=== PATIENT | male | born 1945 ===

== ENCOUNTER 2019-08-07 09:00 | Inpatient (IN) | payer OTHER ==
[~2019-08-07] VITALS: Ht 170.2 cm; Wt 73.0 kg
[2019-08-07] MEDS ORDERED: SIMVASTATIN20 MG PO (09:08)
[2019-08-07] MEDS ORDERED: COZAAR100 MG PO (09:08)
[2019-08-07] MEDS ORDERED: ADALAT CC90 MG PO (09:09)
[2019-08-07] MEDS ORDERED: HYDROCHLOROTHIA25 MG PO (09:09)
[2019-08-07] MEDS ORDERED: LEVO-T50 MCG PO (09:09)
[2019-08-13] MEDS ORDERED: HYOSCYAMINE0.125 M1 SL (12:25)
[2019-08-13] MEDS ORDERED: OXYC1TAB9 PO (12:25)
== END 2019-08-13 14:23 | disposition home or self-care (01) | DRG 330 ==
LOC: SURH 08-10 06:30 → O/R 08-10 06:30 → SURH 08-10 07:45 → O/R 08-10 09:00 → SURH 08-10 09:00
PROVIDERS: ADMIT Surgery
PROC: 0FB24ZX Excision of Left Lobe Liver, Percutaneous Endoscopic Approach, Diagnostic (ICD-10-PCS; 2019-08-10)
PROC: 0DBK4ZZ Excision of Ascending Colon, Percutaneous Endoscopic Approach (ICD-10-PCS; principal; 2019-08-10 07:45)
DX: C18.8 Malignant neoplasm of overlapping sites of colon (principal); C78.7 Secondary malignant neoplasm of liver and intrahepatic bile duct

== ENCOUNTER 2019-08-14 11:36 | Inpatient (IN) | payer OTHER ==
[~2019-08-14] VITALS: Ht 170.2 cm; Wt 73.5 kg
[~2019-08-14 11:36] MED LIST: ADALAT CC90 MG PO; COZAAR100 MG PO; HYDROCHLOROTHIA25 MG PO; HYOSCYAMINE0.125 M1 SL; LEVO-T50 MCG PO; OXYC1TAB9 PO; SIMVASTATIN20 MG PO
[2019-08-19] MEDS ORDERED: AMOX1TAB5 PO (11:04)
[2019-08-19] MEDS ORDERED: TAMS0.4C PO (11:04)
== END 2019-08-19 11:41 | disposition home or self-care (01) | DRG 699 ==
LOC: ER 11:36 → SURH 12:17
PROVIDERS: ADMIT Surgery
PROC: BT43ZZZ Ultrasonography of Bilateral Kidneys (ICD-10-PCS; principal; 2019-08-14)
PROC: 02HV33Z Insertion of Infusion Device into Superior Vena Cava, Percutaneous Approach (ICD-10-PCS; 2019-08-15)
PROC: BW21ZZZ Computerized Tomography (CT Scan) of Abdomen and Pelvis (ICD-10-PCS; 2019-08-15)
PROC: 30233N1 Transfusion of Nonautologous Red Blood Cells into Peripheral Vein, Percutaneous Approach (ICD-10-PCS; 2019-08-16)
DX: N99.89 Other postprocedural complications and disorders of genitourinary system (principal); C18.7 Malignant neoplasm of sigmoid colon; C18.2 Malignant neoplasm of ascending colon; C78.7 Secondary malignant neoplasm of liver and intrahepatic bile duct; R33.8 Other retention of urine; E86.0 Dehydration; D50.0 Iron deficiency anemia secondary to blood loss (chronic)

== ENCOUNTER 2019-09-21 11:44 | Emergency (ER) | payer OTHER ==
[~2019-09-21] VITALS: Ht 170.2 cm; Wt 59.0 kg
[~2019-09-21 11:44] MED LIST changes: +AMOX1TAB5 PO; +TAMS0.4C PO
[2019-09-22] MEDS ORDERED: ALBA-LYBE LIQU178 ML PO (06:17)
== END 2019-09-22 06:24 | disposition home or self-care (01) ==
LOC: ER 11:44
DX: E87.1 Hypo-osmolality and hyponatremia (principal); E86.0 Dehydration

== ENCOUNTER 2019-10-23 05:30 | Day surgery (SDC) | payer OTHER ==
[~2019-10-23 05:30] MED LIST changes: +ALBA-LYBE LIQU178 ML PO
[2019-10-23] MEDS ORDERED: OXYC1TAB9 PO (08:20)
== END 2019-10-23 10:45 | disposition home or self-care (01) ==
LOC: CIR.AMB 05:30
PROVIDERS: ATTEND Surgery
DX: C18.2 Malignant neoplasm of ascending colon (principal); C18.5 Malignant neoplasm of splenic flexure
CPT/HCPCS: 36561; C1751